=== PATIENT | female | born 1985 | race Caucasian/White ===

== ENCOUNTER 2020-04-18 11:08 | Emergency (ER) | payer OTHER ==
[2020-04-18 11:23] VITALS: BMI 36.5
[2020-04-18] MEDS ORDERED: SODIUM CHLORIDE 1,000 ML IV STA (11:43)
[2020-04-18 12:20] LABS: BASO % 0.4 % (0-2.0); EOS % 0.7 % (0-4.5); HEMATOCRIT 36.3 % (32.4-45.2); HEMOGLOBIN 12.4 GM/dL (10.7-15.3); LYMPH % 16.9 % (8-40); MCH 30.7 pg (25.7-33.7); MCHC 34.1 g/dl (32.0-36.0); MEAN CELL VOLUME 89.9 fl (80-96); MEAN PLT VOLUME 8.8 fl (7.5-11.1); PLATELET COUNT 229 K/MM3 (134-434); RBC 4.04 M/mm3 (3.60-5.2); RDW 12.5 % (11.6-15.6); WHITE BLOOD COUNT 9.4 K/mm3 (4.0-10.0)
[2020-04-18 12:26] LABS: INR 1.03 (0.83-1.09); PROTHROMBIN TIME (PATIENT) 12.5 SEC (9.7-13.0)
[2020-04-18 12:29] LABS: ACTIVATED PTT 25.9 SECONDS (25.2-36.5)
[2020-04-18 12:44] LABS: CHLORIDE 106 mmol/L (98-107); POTASSIUM 3.8 mmol/L (3.5-5.1); SODIUM 137 mmol/L (136-145)
[2020-04-18 12:46] LABS: ALBUMIN 2.6 g/dl (3.4-5.0); CALCIUM 8.1 mg/dL (8.5-10.1)
[2020-04-18 12:47] LABS: ANION GAP 8 MMOL/L (8-16); BLOOD UREA NITROGEN 6.3 mg/dL (7-18); CO2 23 mmol/L (21-32); GLUCOSE,RANDOM 111 mg/dL (74-106)
[2020-04-18 12:50] LABS: CREATININE 0.6 mg/dL (0.55-1.3); SGOT/AST 15 U/L (15-37); SGPT/ALT 14 U/L (13-61)
[2020-04-18 12:51] LABS: BILIRUBIN,TOTAL 0.2 mg/dL (0.2-1); TOT PROT 6.6 g/dl (6.4-8.2)
[2020-04-18 12:52] LABS: ALK PHOS 173 U/L (45-117)
[2020-04-18 12:55] LABS: N-TERMINAL BNP 7.9 pg/ml (5-125)
[2020-04-18 14:36] LABS: URINE COLOR YELLOW
[2020-04-18 14:40] LABS: PH,URINE 5.5 (5.0-8.0); URINE APPEARANCE CLEAR; URINE BILIRUBIN NEGATIVE (NEGATIVE); URINE GLUCOSE (UA) NEGATIVE (NEGATIVE); URINE KETONE NEGATIVE (NEGATIVE); URINE NITRITE NEGATIVE (NEGATIVE); URINE PROTEIN N (NEGATIVE)
[2020-04-18 14:41] LABS: URINE LEUK ESTERASE NEGATIVE (NEGATIVE)
[2020-04-18 18:13] VITALS: BP 131/85; PULSE 122; TEMP 98.3
== END 2020-04-18 18:50 | disposition short-term general hospital (02) ==
LOC: JER 11:08
PROC: 3E0337Z Introduction of Electrolytic and Water Balance Substance into Peripheral Vein, Percutaneous Approach (ICD-10-PCS; principal; 2020-04-18)
DX: R42 Dizziness and giddiness (principal); Z3A.26 26 weeks gestation of pregnancy; Z34.92 Encounter for supervision of normal pregnancy, unspecified, second trimester
CPT/HCPCS: 36415; 71275-TC; 80053; 81003; 82550; 83880; 84484; 85025; 85610; 85730; 86850; 86900; 86901; 93005; 93010; 99285-25; Q9967

== ENCOUNTER 2022-08-02 02:45 | Observation (INO) | payer OTHER ==
[2022-08-02] MEDS ORDERED: ALPRAZolam 1 MG TABLET PO PRN (03:04)
[2022-08-02] MEDS ORDERED: LORazepam 2 MG/ML SDV VIAL IVPUSH ONE (03:10)
[2022-08-02 03:42] LABS: BASO % 0.4 % (0-2.0); EOS % 1.9 % (0-4.5); HEMATOCRIT 43.1 % (32.4-45.2); HEMOGLOBIN 14.6 GM/dL (10.7-15.3); MCH 30.6 pg (25.7-33.7); MCHC 33.9 g/dl (32.0-36.0); MEAN CELL VOLUME 90.2 fl (80-96); MEAN PLT VOLUME 8.7 fl (7.5-11.1); MONO % 7.4 % (3.8-10.2); NEUT % 71.3 % (42.8-82.8); PLATELET COUNT 293 10^3/uL (134-434); RBC 4.78 M/mm3 (3.60-5.2); RDW 13.2 % (11.6-15.6); WHITE BLOOD COUNT 11.9 K/mm3 (4.0-10.0)
[2022-08-02 03:52] LABS: INR 1.12 (0.83-1.09); VENOUS BASE EXCESS 1.5 mmol/L (-2-2); VENOUS O2 SATURATION 55.3 % (70-80); VENOUS PCO2 45.1 mmHg (38-52); VENOUS PH 7.394 (7.310-7.410)
[2022-08-02 03:55] LABS: ACTIVATED PTT 27.5 SECONDS (25.2-36.5); CHLORIDE 105 mmol/L (98-107); SODIUM 141 mmol/L (136-145)
[2022-08-02 03:57] LABS: CALCIUM 8.6 mg/dL (8.5-10.1)
[2022-08-02 03:58] LABS: ALBUMIN 3.7 g/dl (3.4-5.0); ANION GAP 9 MMOL/L (8-16); BLOOD UREA NITROGEN 6.8 mg/dL (7-18); CO2 26 mmol/L (21-32); GLUCOSE,RANDOM 85 mg/dL (74-106); MAGNESIUM 2.1 mg/dL (1.8-2.4)
[2022-08-02 04:01] LABS: CREATININE 0.7 mg/dL (0.55-1.3); PHOSPHOROUS 2.7 mg/dL (2.5-4.9); SGOT/AST 25 U/L (15-37); SGPT/ALT 21 U/L (13-61)
[2022-08-02 04:02] LABS: TOT PROT 7.8 g/dl (6.4-8.2)
[2022-08-02 04:04] LABS: ALK PHOS 86 U/L (45-117)
[2022-08-02 11:39] LABS: CALCIUM 8.6 mg/dL (8.5-10.1)
[2022-08-02 11:40] LABS: BLOOD UREA NITROGEN 7.2 mg/dL (7-18)
[2022-08-02 11:43] LABS: CREATININE 0.6 mg/dL (0.55-1.3)
[2022-08-02] MEDS ORDERED: NALOXONE HCL 0.4 MG/ML VIAL IVPUSH ONE (15:09)
[2022-08-02] MEDS ORDERED: LACTATED RINGERS SOLUTION 1,000 ML/1,000 ML INFUS.BAG IV STA (15:10)
[2022-08-02] MEDS ORDERED: NALOXONE HCL 0.4 MG/ML VIAL ONE (15:46)
[2022-08-02] MEDS ORDERED: D5-LR+20 MEQ KCL - 20 MEQ/1,000 ML INFUS.BAG IV SCH (16:45)
[2022-08-02 17:45] LABS: EPI CELLS 33 /uL (0-25.1); HYALINE CASTS 4 /uL (0-3.1); PH,URINE 5.5 (5.0-8.0); URINE APPEARANCE CLOUDY; URINE BACTERIA 4147 /uL (0-1359); URINE BILIRUBIN NEGATIVE (NEGATIVE); URINE COLOR DK YELLOW; URINE GLUCOSE (UA) NEGATIVE (NEGATIVE); URINE KETONE 1+ (NEGATIVE); URINE LEUK ESTERASE 1+ (NEGATIVE); URINE NITRITE POSITIVE (NEGATIVE); URINE PROTEIN TRACE (NEGATIVE); URINE RBC 23 /uL (0-23.9); URINE WBC 120 /uL (0-25.8)
[2022-08-02 18:03] LABS: METHADONE, UR NEGATIVE (NEGATIVE); OPIATES, URI NEGATIVE (NEGATIVE); PHENCYCLIDINE,URINE NEGATIVE (NEGATIVE); URINE BARBITURATES NEGATIVE (NEGATIVE); URINE BENZODIAZEPINES NEGATIVE (NEGATIVE)
[2022-08-02 18:08] LABS: COCAINE, UR POSITIVE (NEGATIVE); URINE AMPHETAMINES POSITIVE (NEGATIVE)
[2022-08-03 01:51] VITALS: BMI 31.9
[2022-08-03] MEDS: ENOXAPARIN NA (PORCINE) 40 MG/0.4 ML DISP.SYRIN SQ SCH (09:30)
[2022-08-03] MEDS ORDERED: LACTATED RINGERS SOLUTION 1,000 ML/1,000 ML INFUS.BAG IV SCH (10:00)
[2022-08-03] MEDS ORDERED: ACETAMINOPHEN 325 MG TABLET (FP) PO PRN (10:20)
[2022-08-03 10:52] LABS: BASO % 0.6 % (0-2.0); EOS % 2.3 % (0-4.5); HEMOGLOBIN 13.9 GM/dL (10.7-15.3); LYMPH % 27.4 % (8-40); MCH 30.9 pg (25.7-33.7); MCHC 33.8 g/dl (32.0-36.0); MEAN CELL VOLUME 91.4 fl (80-96); MEAN PLT VOLUME 8.7 fl (7.5-11.1); MONO % 5.8 % (3.8-10.2); NEUT % 63.9 % (42.8-82.8); PLATELET COUNT 278 10^3/uL (134-434); RBC 4.48 M/mm3 (3.60-5.2); RDW 12.9 % (11.6-15.6); WHITE BLOOD COUNT 6.4 K/mm3 (4.0-10.0)
[2022-08-03 11:03] LABS: CALCIUM 8.3 mg/dL (8.5-10.1)
[2022-08-03 11:04] LABS: ALBUMIN 3.1 g/dl (3.4-5.0); BLOOD UREA NITROGEN 8.3 mg/dL (7-18); MAGNESIUM 1.9 mg/dL (1.8-2.4)
[2022-08-03 11:07] LABS: CREATININE 0.8 mg/dL (0.55-1.3)
[2022-08-03 11:08] LABS: TOT PROT 6.6 g/dl (6.4-8.2)
[2022-08-03 11:09] LABS: BILIRUBIN,TOTAL 0.5 mg/dL (0.2-1)
[2022-08-03 11:10] LABS: PHOSPHOROUS 2.8 mg/dL (2.5-4.9)
[2022-08-03] MEDS ORDERED: POTASSIUM CHLORIDE ORAL LIQUID 20 MEQ/15 ML PO ONE (12:45)
[2022-08-04] MEDS: ENOXAPARIN NA (PORCINE) 40 MG/0.4 ML DISP.SYRIN SQ SCH (09:22)
[2022-08-04 09:57] LABS: CALCIUM 7.9 mg/dL (8.5-10.1)
[2022-08-04 09:58] LABS: BLOOD UREA NITROGEN 7.9 mg/dL (7-18)
[2022-08-04 10:01] LABS: CREATININE 0.7 mg/dL (0.55-1.3)
[2022-08-04 11:55] VITALS: BP 132/77; PULSE 100; RESP 20; TEMP 98.1
== END 2022-08-04 11:13 | disposition home or self-care (01) ==
LOC: JER 02:45 → JERBED 14:20 → INTOOBSV 14:20 → JERBED 14:20 → UNDOADMOB 14:20 → J6S 08-03 00:44
PROVIDERS: ADMIT Internal Medicine; ATTEND Internal Medicine
PROC: 3E033GC Introduction of Other Therapeutic Substance into Peripheral Vein, Percutaneous Approach (ICD-10-PCS; principal; 2022-08-02)
PROC: 3E023GC Introduction of Other Therapeutic Substance into Muscle, Percutaneous Approach (ICD-10-PCS; 2022-08-02)
PROC: 3E0337Z Introduction of Electrolytic and Water Balance Substance into Peripheral Vein, Percutaneous Approach (ICD-10-PCS; 2022-08-02)
PROC: 3E033NZ Introduction of Analgesics, Hypnotics, Sedatives into Peripheral Vein, Percutaneous Approach (ICD-10-PCS; 2022-08-02)
DX: R41.82 Altered mental status, unspecified (principal); R53.1 Weakness; E66.01 Morbid (severe) obesity due to excess calories; Z68.32 Body mass index [BMI] 32.0-32.9, adult; E87.6 Hypokalemia
CPT/HCPCS: 36415; 70450-TC; 71045-TC-FY; 80048; 80053; 80307; 81003; 82803; 83605; 83735; 84100; 84484; 84703; 85025; 85610; 85730; 87086; 87186; 93005; 93010; 96361; 96365; 96372; 96375; 99285-25; G0378